=== PATIENT | male | born 1995 | race Caucasian/White ===

== ENCOUNTER 2016-07-28 12:29 | Emergency (ER) | payer OTHER ==
[~2016-07-28] VITALS: Ht 175.3 cm; Wt 63.5 kg
[~2016-07-28 12:29] MED LIST: CILOXAN5 ML OP; KEFLEX500 MG PO; NOHOMEMEDICATIONS; NORCO 5-325 TA1 EACH PO
[2016-07-28 14:11] LABS: BASOPHILS 0.2 % (0.0-2.0); EOSINOPHILS 0.2 % (0.0-3.0); HEMATOCRIT 50.3 % (42.0-52.0); HEMOGLOBIN 17.2 gm/dL (14.0-18.0); LYMPHOCYTES 10.1 % (24.0-44.0); MANUAL DIFF NO; MCH 30.6 pg (26.0-34.0); MCHC 34.1 g/dL (28.0-37.0); MCV 89.8 fL (80.0-100.0); MONOCYTES 6.1 % (1.0-8.0); PLATELET COUNT 264 thou/uL (150-400); POLYS 83.4 % (36.0-66.0); RBC 5.61 mil/uL (4.50-6.00); RDW 13.8 % (10.5-14.5); WBC 13.2 thou/uL (4.0-11.0)
[2016-07-28 14:17] LABS: URINE BILIRUBIN NEGATIVE (Negative); URINE BLOOD NEGATIVE (Negative); URINE COLOR YELLOW; URINE GLUCOSE-RANDOM* NEGATIVE (Negative); URINE KETONES NEGATIVE (Negative); URINE NITRITE NEGATIVE (Negative); URINE PROTEIN (DIPSTICK) 2+ (Negative)
[2016-07-28 14:18] LABS: CALCIUM 9.7 mg/dL (8.5-10.1); CREATININE 1.1 mg/dL (0.7-1.3)
[2016-07-28 14:24] LABS: BACTERIA None Seen /HPF (None Seen); SQUAMOUS None Seen /LPF (0-3); URINE WBC None Seen /HPF (0-5)
[2016-07-28 14:25] LABS: CASTS None Seen /LPF (None Seen); CRYSTALS None Seen /LPF (None Seen); URINE RBC 0-2 Rare /HPF (0-2)
[2016-07-28] MEDS ORDERED: ONDANSETRON HCL4 M2 PO (14:59)
[2016-07-28] MEDS ORDERED: PEPCID20 MG PO (14:59)
[2016-07-28] MEDS ORDERED: CARAFATE 1 GM TA1 G1 PO (14:59)
[2016-07-28 15:06] VITALS: BP 118/70
== END 2016-07-28 15:08 ==
LOC: ER 12:29
PROVIDERS: Physician Assistant
DX: K29.70 Gastritis, unspecified, without bleeding (principal)